=== PATIENT | female | born 1965 | race American Indian/Alaskan Native ===

== ENCOUNTER 2017-04-23 10:37 | Day surgery (SDC) | payer MEDICAID ==
[2017-04-23 11:20] VITALS: BMI 42.7
[2017-04-23] MEDS ORDERED: cefTRIAXone (Rocephin) 1 gm Inj ONE (11:57)
[2017-04-23] MEDS ORDERED: Propofol 10 mg/ml Inj (20 ML) ONE (12:00)
[2017-04-23] MEDS ORDERED: Midazolam 2 MG/2 ML VIAL ONE (12:00)
[2017-04-23] MEDS ORDERED: Succinylcholine 200 mg/10 ml Inj IV ONE (12:08)
[2017-04-23] MEDS ORDERED: Iohexol 300 100 ML IJ ONE (12:10)
[2017-04-23] MEDS ORDERED: Lactated Ringer's 1,000 ML IV ONE (12:11)
[2017-04-23] MEDS ORDERED: cefTRIAXone (Rocephin) 1 gm Inj IVPB ONE (12:20)
[2017-04-23] MEDS ORDERED: DiphenhydrAMINE 50 mg/ml Inj ONE (12:34)
[2017-04-23] MEDS ORDERED: Liquid Adhesive TOP ONE (12:46)
[2017-04-23] MEDS ORDERED: HYDROmorphone 0.5 mg/0.5 ml ISec IVP PRN (12:59)
[2017-04-23] MEDS ORDERED: Desflurane Inhalation Anesthetic Liq (240 ml) ONE (13:22)
[2017-04-23 14:03] VITALS: O2SAT 97
[2017-04-23 14:28] VITALS: PULSE 86; RESP 18
[2017-04-23 15:37] VITALS: BP 134/78; TEMP 97.6
--- NOTE | 2017-04-23 16:18 | RAD ---
PROCEDURE: Intraoperative Fluoroscopy. HISTORY: CYSTO (STONE BASKETING/STENT PLACEMENT) FINDINGS: Fluoroscopic assistance was provided for cystogram. Please refer to
--- NOTE | 2017-04-23 23:08 | OP ---
PROCEDURE DATE: 04/23/2017 PREOPERATIVE DIAGNOSES: Right renal colic with multiple right ureteral calculi. PROCEDURE PERFORMED: Cystoscopy, right ureteroscopy and stone basketing of three separate ureteral calculi. DESCRIPTION OF PROCEDURE: Patient was placed on the operating table in dorsal lithotomy position. The area of the groin was draped and prepped in the sterile manner. Using a long ureteroscope, I entered into the bladder atraumatically, identified the right ureteral orifice. Over a floppy-tip guidewire, I advanced the ureteroscope to the first obstructing stone which was the most distal one and with the largest one, I was able to basket it completely, removed it out. I went back, mid ureter, I found the smaller one, probably 4 to 5 mm, basketed that one, went back, went up towards the renal pelvis and found the third one which was an irregular, probably 5 to 6 mm stone. I was able to remove all three of them. Once this was done, I inserted under fluoroscopy, a 6-Swazi multilength double-J stent. String was left attached. The patient then was taken from the operating room in good condition and the stone sent for analysis. Anika Thorpe MD
== END 2017-04-23 15:50 | disposition home or self-care (01) ==
LOC: H.OPSURG 10:37
PROVIDERS: ATTEND Urology
DX: N20.0 Calculus of kidney (principal); E11.9 Type 2 diabetes mellitus without complications; E78.5 Hyperlipidemia, unspecified; R06.83 Snoring
CPT/HCPCS: 52332; 52352; 82355; 82948; C1769; C2617; J0330; J0696; J1200; J2001; J2250; J2405; J2704; J3010; J7120